=== PATIENT | male | born 1985 | race Caucasian/White ===

== ENCOUNTER 2016-11-15 15:52 | Observation (INO) | payer BC, OTHER ==
[~2016-11-15] VITALS: Ht 175.3 cm; Wt 68.0 kg
--- NOTE | ~2016-11-15 | HC ---
[facility] [place] [address] CONSULTATION Name: JONATANTREVOR P Room #: 408-P [facility] Wendy Sprague#: [id number] Admission: 11/15/16 Attend Phys: Jonathan Ralph DO Discharge: 11/16/16 Date of : 89 Report #: [id number] THIS REPORT FOR: //name// CC: SERGIO physician/PCP Rodolfo Darby DATE OF CONSULTATION: 11/16/2016. REASON FOR CONSULTATION: Left renal colic. HISTORY OF PRESENT ILLNESS: The patient is a 31-year-old gentleman who presents to the Emergency Room with a several day history of intermittent and subsequently worsening left flank and abdominal pain. The patient had noted no changes in his bowel or bladder habits. Subsequent evaluation revealed the presence of mild left sided hydronephrosis without evidence of any calculus within the kidney or within the bladder, it was suspicion that the patient had a likely passed a stone spontaneously with residual ureteral edema . The patient states he has not had prior history of stone disease. FAMILY HISTORY: Unknown. He is at adopted. PAST MEDICAL HISTORY: Significant for degenerative joint disease. MEDICATIONS: On a regular basis are none, the patient takes Tums and ibuprofen on an as needed basis. PAST SURGICAL HISTORY: Includes reconstructive procedure for orthopedic injury in left arm. SOCIAL HISTORY: Alcohol use, is social. He is a smoker intermittently. ALLERGIES: None known. PHYSICAL EXAMINATION: GENERAL: The patient is currently in no acute distress. HEENT: Normocephalic, atraumatic. NECK: Supple, without lymphadenopathy. LUNGS: Clear to auscultation. CARDIOVASCULAR: Regular rate and rhythm without murmur. ABDOMEN: Soft, without peritoneal signs. He does have some mild tenderness in the left upper quadrant. RECTAL: Deferred. NEUROMUSCULAR: Exam is nonfocal. LABORATORY DATA: The patient's creatinine is 0.9, BUN is 18. Electrolytes are normal. White blood count is 6.9, hemoglobin and hematocrit 15 and 43, [address] [address] CONSULTATION Name: TREVOR CHEUNG Tam Room #: 408-[facility] Wendy Sprague#: [id number] Admission: 11/15/16 Attend Phys: Jonathan Ralph DO Discharge: 11/16/16 Date of : [birth year] Report #: [id number] Urinalysis specific gravity is , pH was 7, trace ketones, dipstick was negative. IMAGING STUDIES: As noted in the history of present illness. There is mild minor left hydronephrosis likely related to recent stone passage. There is no evidence of stone within the urinary tract. There are occasional sigmoid diverticula present without definite inflammatory changes. IMPRESSION: Abdominal flank pain. Clinical picture consistent with recently passed ureteral calculus, abdominal etiology also could be possible without any obvious inflammatory changes on CT scanning. PLAN AND DISCUSSION: I would suggest the patient office follow up in 2 weeks to reassess his urine, also discussed stone prevention. RECOMMENDATIONS: No urological intervention appears indicated at this time given absence of stone. Thank you for allowing me see the patient in consultation. <ELECTRONICALLY SIGNED> By: Tad Darby MD 11/18/16 1236 0717 Tad Darby MD /nt
[2016-11-15 15:53] VITALS: BP 133/90
[2016-11-15] MEDS ORDERED: IBUPROFEN 200200 M1 PO (16:17)
[2016-11-15] MEDS ORDERED: TUMS PO (16:17)
[2016-11-15 16:27] LABS: HEMATOCRIT 43.1 % (42.0-52.0); HEMOGLOBIN 14.9 gm/dL (14.0-18.0); MCH 30.7 pg (26.0-34.0); MCHC 34.5 % (28.0-37.0); MCV 89.1 fL (80.0-100.0); RBC 4.84 mil/uL (4.50-6.00); RDW 13.1 % (10.5-14.5); WBC 6.9 thou/uL (4.0-11.0)
[2016-11-15 16:35] LABS: CALCIUM 9.7 mg/dL (8.5-10.1); CREATININE 0.9 mg/dL (0.6-1.3); POTASSIUM 3.7 mmol/L (3.5-5.1)
[2016-11-15 16:41] LABS: ALBUMIN 4.8 g/dL (3.4-5.0); TOTAL BILIRUBIN 0.8 mg/dL (<0.1-1.0); TOTAL PROTEIN 7.9 g/dL (6.4-8.2)
[2016-11-15 17:17] LABS: URINE BILIRUBIN NEGATIVE (Negative); URINE BLOOD NEGATIVE (Negative); URINE COLOR YELLOW; URINE GLUCOSE-RANDOM* NEGATIVE (Negative); URINE KETONES TRACE (Negative); URINE NITRITE NEGATIVE (Negative); URINE PROTEIN (DIPSTICK) NEGATIVE (Negative); URINE SPECIFIC GRAVITY 1.015 (1.003-1.035); URINE UROBILINOGEN 0.2 E.U./dl (0.2-1.0)
[2016-11-15 20:01] VITALS: BP 122/58
[2016-11-15 20:40] VITALS: BP 132/81
[2016-11-16 03:35] VITALS: BP 112/60
[2016-11-16 08:00] VITALS: BP 110/67
[2016-11-16] MEDS ORDERED: PERCOCET 10-321 EACH PO (10:41)
[2016-11-16] MEDS ORDERED: TAMSULOSIN HCL0.4 MG PO (10:41)
[2016-11-16 13:59] VITALS: BP 110/67
== END 2016-11-16 16:11 | disposition home or self-care (01) ==
LOC: ER 15:52 → EROBS 19:22 → 4N 19:22
PROVIDERS: Physician Assistant
DX: N20.0 Calculus of kidney (principal); Z79.899 Other long term (current) drug therapy; F17.210 Nicotine dependence, cigarettes, uncomplicated; Z98.890 Other specified postprocedural states

== ENCOUNTER 2017-07-05 12:27 | Emergency (ER) | payer BC ==
[~2017-07-05] VITALS: Ht 175.3 cm; Wt 68.0 kg
[~2017-07-05 12:27] MED LIST: IBUPROFEN 200200 M1 PO; PERCOCET 10-321 EACH PO; TAMSULOSIN HCL0.4 MG PO; TUMS PO
[2017-07-05 13:17] LABS: URINE BILIRUBIN NEGATIVE (Negative); URINE BLOOD 2+ (Negative); URINE COLOR YELLOW; URINE GLUCOSE-RANDOM* NEGATIVE (Negative); URINE KETONES TRACE (Negative); URINE NITRITE NEGATIVE (Negative); URINE PROTEIN (DIPSTICK) NEGATIVE (Negative); URINE SPECIFIC GRAVITY >= 1.030 (1.003-1.035); URINE UROBILINOGEN 0.2 E.U./dl (0.2-1.0)
[2017-07-05 13:24] LABS: BACTERIA None Seen /HPF (None Seen); CASTS None Seen /LPF (None Seen); CRYSTALS None Seen /LPF (None Seen); SQUAMOUS None Seen /LPF (0-3); URINE RBC 0-2 Rare /HPF (0-2); URINE WBC 0-5 Rare /HPF (0-5)
[2017-07-05 13:42] LABS: ABSOLUTE NEUTROPHILS 1.5 thou/uL (1.4-8.2); BASOPHILS 0.7 % (0.0-2.0); EOSINOPHILS 0.9 % (0.0-3.0); HEMATOCRIT 43.4 % (42.0-52.0); HEMOGLOBIN 14.9 gm/dL (14.0-18.0); LYMPHOCYTES 56.9 % (24.0-44.0); MCH 30.9 pg (26.0-34.0); MCHC 34.3 g/dL (28.0-37.0); MONOCYTES 8.3 % (1.0-8.0); PLATELET COUNT 237 thou/uL (150-400); POLYS 33.2 % (36.0-66.0); RBC 4.83 mil/uL (4.50-6.00); RDW 12.8 % (10.5-14.5); WBC 4.5 thou/uL (4.0-11.0)
[2017-07-05 13:44] LABS: CALCIUM 9.1 mg/dL (8.5-10.1); CREATININE 0.9 mg/dL (0.7-1.3)
[2017-07-05 13:47] LABS: MANUAL DIFF NO
[2017-07-05 13:50] LABS: ALBUMIN 4.2 g/dL (3.4-5.0); TOTAL BILIRUBIN 0.7 mg/dL (<0.1-1.0); TOTAL PROTEIN 7.2 g/dL (6.4-8.2)
[2017-07-05] MEDS ORDERED: TORADOL 10 MG T10 MG PO (15:01)
[2017-07-05] MEDS ORDERED: PHENAZOPYRIDIN200 M2 PO (15:01)
== END 2017-07-05 15:16 | disposition home or self-care (01) ==
LOC: ER 12:27
PROVIDERS: Physician Assistant
DX: R31.9 Hematuria, unspecified (principal); R10.9 Unspecified abdominal pain; F17.210 Nicotine dependence, cigarettes, uncomplicated; F10.99 Alcohol use, unspecified with unspecified alcohol-induced disorder; Z88.7 Allergy status to serum and vaccine

== ENCOUNTER 2018-08-26 02:08 | Emergency (ER) | payer OTHER ==
[~2018-08-26] VITALS: Ht 177.8 cm; Wt 70.3 kg
--- NOTE | ~2018-08-26 | EKG ---
[address] [address] ELECTROCARDIOGRAM REPORT Name: TREVOR CHEUNG [id number] Admission: 08/26/18 Attend Phys: Discharge: 08/26/18 Date of : [birth year] Report #: [id number] THIS REPORT FOR: //name// [facility] ED Test Date: 2018-08-26 Test Time: 02:13:58 Pat Name: TREVOR CHEUNG Department: Room: Gender: Tightener: CARMEN : 1985 Requested By: Sarah Gandhi Order Number: [id number] MD: Teddy Gomez Measurements Intervals [place] Rate: 127 P: 65 MN: 138 QRS: 58 QRSD: 82 T: 2 QT: 331 QTc: 482 Interpretive Statements Sinus tachycardia Borderline prolonged QT interval No previous ECG available for comparison Electronically Signed On 08-27-2018 9:09:25 CDT by Teddy Gomez [email or web address] <ELECTRONICALLY SIGNED> By: Teddy Gomez MD, [facility] 08/27/18 0909 0213 0213 Teddy Gomez MD, FACC /EPI
[~2018-08-26 02:08] MED LIST changes: +PHENAZOPYRIDIN200 M2 PO; +TORADOL 10 MG T10 MG PO
[2018-08-26 03:25] LABS: ABSOLUTE NEUTROPHILS 4.8 thou/uL (1.4-8.2); BASOPHILS 0.8 % (0.0-2.0); EOSINOPHILS 0.3 % (0.0-3.0); HEMOGLOBIN 15.6 gm/dL (14.0-18.0); LYMPHOCYTES 27.8 % (24.0-44.0); MCH 30.6 pg (26.0-34.0); MCHC 34.6 g/dL (28.0-37.0); MCV 88.5 fL (80.0-100.0); MONOCYTES 7.3 % (1.0-8.0); PLATELET COUNT 293 thou/uL (150-400); POLYS 63.8 % (36.0-66.0); RBC 5.09 mil/uL (4.50-6.00); RDW 12.6 % (10.5-14.5); WBC 7.5 thou/uL (4.0-11.0)
[2018-08-26 03:31] LABS: ANION GAP 13 mmol/L (7-16); BUN 17 mg/dL (7-18); CALCIUM 9.7 mg/dL (8.5-10.1); CHLORIDE 101 mmol/L (98-107); CO2 23 mmol/L (21-32); CREATININE 1.1 mg/dL (0.7-1.3); GLUCOSE 122 mg/dL (74-106); POTASSIUM 3.4 mmol/L (3.5-5.1); SODIUM 137 mmol/L (136-145)
[2018-08-26 03:40] LABS: TROPONIN-I <0.06 ng/mL (<0.06)
== END 2018-08-26 05:30 | disposition home or self-care (01) ==
LOC: ER 02:08
PROVIDERS: Emergency Medicine
DX: R07.9 Chest pain, unspecified (principal); J45.909 Unspecified asthma, uncomplicated; Z87.442 Personal history of urinary calculi; Z87.891 Personal history of nicotine dependence; Z88.7 Allergy status to serum and vaccine

== ENCOUNTER 2018-09-26 00:14 | Emergency (ER) | payer OTHER ==
[~2018-09-26] VITALS: Ht 175.3 cm; Wt 70.3 kg
[2018-09-26 00:33] LABS: ABSOLUTE NEUTROPHILS 7.9 thou/uL (1.4-8.2); BASOPHILS 0.2 % (0.0-2.0); EOSINOPHILS 0.5 % (0.0-3.0); HEMATOCRIT 44.9 % (42.0-52.0); HEMOGLOBIN 15.6 gm/dL (14.0-18.0); LYMPHOCYTES 12.5 % (24.0-44.0); MCH 31.1 pg (26.0-34.0); MCHC 34.7 g/dL (28.0-37.0); MCV 89.7 fL (80.0-100.0); MONOCYTES 2.9 % (1.0-8.0); PLATELET COUNT 229 thou/uL (150-400); POLYS 83.9 % (36.0-66.0); RDW 13.2 % (10.5-14.5); WBC 9.4 thou/uL (4.0-11.0)
[2018-09-26 00:41] LABS: CALCIUM 9.1 mg/dL (8.5-10.1); CREATININE 0.8 mg/dL (0.7-1.3); POTASSIUM 3.5 mmol/L (3.5-5.1)
[2018-09-26 00:48] LABS: ALBUMIN 4.2 g/dL (3.4-5.0); TOTAL BILIRUBIN 0.5 mg/dL (<0.1-1.0); TOTAL PROTEIN 7.1 g/dL (6.4-8.2)
[2018-09-26] MEDS ORDERED: ZOFRAN ODT4 MG PO (02:37)
[2018-09-26 02:46] VITALS: BP 96/55
== END 2018-09-26 02:47 | disposition home or self-care (01) ==
LOC: ER 00:14
PROVIDERS: Emergency Medicine
DX: A09 Infectious gastroenteritis and colitis, unspecified (principal); R11.2 Nausea with vomiting, unspecified; Z87.891 Personal history of nicotine dependence; Z88.7 Allergy status to serum and vaccine

== ENCOUNTER 2020-04-27 12:25 | Emergency (ER) | payer OTHER ==
[~2020-04-27] VITALS: Ht 177.8 cm; Wt 79.4 kg
[~2020-04-27 12:25] MED LIST changes: +ZOFRAN ODT4 MG PO
[2020-04-27] MEDS ORDERED: MOBIC15 MG PO (14:24)
[2020-04-27 14:35] VITALS: BP 141/89
== END 2020-04-27 14:36 | disposition home or self-care (01) ==
LOC: ER 12:25
DX: S00.83XA Contusion of other part of head, initial encounter (principal); Z87.891 Personal history of nicotine dependence; Z79.1 Long term (current) use of non-steroidal anti-inflammatories (NSAID); Z79.899 Other long term (current) drug therapy; Z88.7 Allergy status to serum and vaccine; V00.131A Fall from skateboard, initial encounter; Y93.51 Activity, roller skating (inline) and skateboarding; Y92.89 Other specified places as the place of occurrence of the external cause; Y99.8 Other external cause status

== ENCOUNTER 2020-06-20 20:50 | Emergency (ER) | payer OTHER ==
[~2020-06-20] VITALS: Ht 175.3 cm; Wt 77.1 kg
[~2020-06-20 20:50] MED LIST changes: +MOBIC15 MG PO
[2020-06-20 22:34] VITALS: BP 137/79
--- NOTE | 2020-06-22 08:53 | EKG ---
[facility] [place] [address] ELECTROCARDIOGRAM REPORT Name: TREVOR CHEUNG Room #: [facility]#: [id number] Admission: 06/20/20 Attend Phys: Discharge: 06/20/20 Date of : [birth year] Report #: [id number] THIS REPORT FOR: cc: SERGIO - Hetal family physician/PCP SERGIO - Hetal family physician/PCP Teddy Gomez MD [facility] THIS REPORT FOR: //name// [facility] ED Test Date: 2020-06-20 Test Time: 20:56:30 Pat Name: TREVOR CHEUNG Department: Room: Gender: Supervisor Agency Appointments: [facility] : 1985 Requested By: Sarkis Treviño Order Number: [id number] MD: Teddy Gomez Measurements Intervals [place] Rate: 71 P: 34 SD: 163 QRS: 14 QRSD: 102 T: 36 QT: 521 QTc: 567 Interpretive Statements Sinus rhythm Nonspecific T wave abnormality Prolonged QT interval Compared to ECG 08/26/2018 02:13:58 Sinus tachycardia no longer present Electronically Signed On 06-22-2020 8:52:55 CDT by Teddy Gomez [email or web address] <ELECTRONICALLY SIGNED> By: Teddy Gomez MD, [facility] 06/22/20851 55 55 Teddy Gomez MD, [facility] /EPI
== END 2020-06-20 22:22 | disposition left against medical advice (07) ==
LOC: ER 20:50
DX: R07.9 Chest pain, unspecified (principal); R06.02 Shortness of breath; K57.92 Diverticulitis of intestine, part unspecified, without perforation or abscess without bleeding; Z87.891 Personal history of nicotine dependence; Z79.899 Other long term (current) drug therapy

== ENCOUNTER 2021-03-07 11:13 | Emergency (ER) | payer OTHER ==
[~2021-03-07] VITALS: Ht 175.3 cm; Wt 74.8 kg
[2021-03-07 11:22] LABS: URINE BILIRUBIN NEGATIVE (Negative); URINE BLOOD TRACE (Negative); URINE CLARITY CLEAR; URINE COLOR YELLOW; URINE GLUCOSE-RANDOM* NEGATIVE (Negative); URINE KETONES NEGATIVE (Negative); URINE LEUKOCYTES-REFLEX NEGATIVE (Negative); URINE NITRITE-REFLEX NEGATIVE (Negative); URINE PROTEIN (DIPSTICK) NEGATIVE (Negative); URINE UROBILINOGEN 0.2 E.U./dl (0.2-1.0)
[2021-03-07 11:41] LABS: ABSOLUTE NEUTROPHILS 2.3 thou/uL (1.4-8.2); BASOPHILS 0.7 % (0.0-2.0); EOSINOPHILS 1.3 % (0.0-3.0); HEMATOCRIT 46.9 % (42.0-52.0); HEMOGLOBIN 15.8 gm/dL (14.0-18.0); LYMPHOCYTES 56.1 % (24.0-44.0); MCH 30.7 pg (26.0-34.0); MCHC 33.7 g/dL (28.0-37.0); MCV 91.1 fL (80.0-100.0); MONOCYTES 6.8 % (1.0-8.0); PLATELET COUNT 292 thou/uL (150-400); POLYS 35.1 % (36.0-66.0); RBC 5.14 mil/uL (4.50-6.00); RDW 12.9 % (10.5-14.5); WBC 6.6 thou/uL (4.0-11.0)
[2021-03-07 11:50] LABS: CALCIUM 9.6 mg/dL (8.5-10.1); POTASSIUM 3.3 mmol/L (3.5-5.1)
[2021-03-07 11:56] LABS: ALBUMIN 4.6 g/dL (3.4-5.0); TOTAL BILIRUBIN 0.5 mg/dL (0.2-1.0); TOTAL PROTEIN 8.1 g/dL (6.4-8.2)
[2021-03-07] MEDS ORDERED: BENTYL 10 MG CA10 M1 PO (12:57)
[2021-03-07] MEDS ORDERED: CARAFATE 1 GM TA1 G1 PO (12:57)
[2021-03-07 13:14] VITALS: BP 112/69
== END 2021-03-07 13:15 | disposition home or self-care (01) ==
LOC: ER 11:13
PROVIDERS: Emergency Medicine
DX: R10.32 Left lower quadrant pain (principal); Z87.442 Personal history of urinary calculi; Z79.899 Other long term (current) drug therapy; Z88.7 Allergy status to serum and vaccine; Z87.891 Personal history of nicotine dependence